=== PATIENT | female | born 1955 | race Caucasian/White ===

== ENCOUNTER 2024-07-17 19:26 | Emergency (ER) | payer OTHER ==
[~2024-07-17] VITALS: Ht 170.2 cm; Wt 68.0 kg
[2024-07-17] MEDS ORDERED: Tetracaine HCl/Pf 0.5% Opth Soln 4 ml LEFTEYE ONE (19:35)
[2024-07-17] MEDS ORDERED: Fluorescein Sod 1MG Opth Strips LEFTEYE ONE (19:40)
[2024-07-17] MEDS ORDERED: OCUFLOX511 LEFTEYE (21:14)
[2024-07-17] MEDS ORDERED: Ofloxacin 0.3% Opth Soln 5 ML LEFTEYE ONE (21:15)
== END 2024-07-17 21:27 | disposition home or self-care (01) ==
LOC: ER 19:26
DX: H11.32 Conjunctival hemorrhage, left eye (principal)
CPT/HCPCS: 99282; A9270